=== PATIENT | male | born 1975 | race Caucasian/White ===

== ENCOUNTER 2019-05-05 18:56 | Emergency (ER) | payer BC ==
[~2019-05-05] VITALS: Ht 190.5 cm; Wt 87.1 kg
[2019-05-05] MEDS ORDERED: ACID REDUCER75 MG PO (19:23)
== END 2019-05-05 20:30 | disposition home or self-care (01) ==
LOC: ED 18:56
DX: N34.2 Other urethritis (principal); F17.200 Nicotine dependence, unspecified, uncomplicated; Z79.899 Other long term (current) drug therapy
CPT/HCPCS: 81001; 87491; 87591; 96372; 99283-25; J0696